=== PATIENT | male | born 1960 | race Caucasian/White ===

== ENCOUNTER 2016-06-26 08:35 | Inpatient (IN) | payer BC ==
[~2016-06-26] VITALS: Ht 177.8 cm; Wt 116.5 kg
[2016-06-27 05:50] VITALS: BP 149/97; PULSE 70; RESP 16; TEMP 98.3; O2SAT 99
[2016-06-27] MEDS ORDERED: INSULIN HUMAN REGULAR 1,000 UNITS/10 ML VIAL SQ PRN (06:30)
[2016-06-27] MEDS ORDERED: POVIDONE IODINE 7.5% SCRUB 118 ML BOTTLE TOPICAL SCH (06:30)
[2016-06-27] MEDS ORDERED: METOPROLOL TARTRATE 25 MG TAB PO PRN (06:30)
[2016-06-27] MEDS ORDERED: VANCOMYCIN 1000 MG/NS 250 ML (for <70 kg) IV SCH ×2 (06:30)
[2016-06-27] MEDS ORDERED: ceFAZolin 2 GM PREMIX 50 ML IV SCH (06:30)
[2016-06-27] MEDS ORDERED: SODIUM CHLORID 0.9% 500 ML IV PRN (06:30)
[2016-06-27] MEDS ORDERED: LACTATED RINGER'S 1000 ML IV PRN (06:30)
[2016-06-27] MEDS ORDERED: CHLORHEXIDINE GLUCONATE 2 % 1 PACK (2 CLOTHS) TOPICAL PRN (06:30)
[2016-06-27] MEDS ORDERED: DEXAMETHASONE SOD PHOS 20 MG/5 ML VIAL IV SCH (06:30)
[2016-06-27] MEDS ORDERED: POVIDONE IODINE 5% (ANTISEPSIS KIT) 4 APPLICATIONS EACH NARE PRN (06:30)
--- NOTE | 2016-06-27 07:02 | HHI.DCPOC ---
Discharge Care Plan Diagnosis: (1) Primary localized osteoarthrosis, lower leg (2) Status post total knee replacement, left Your Health Problems Are: Difficulty with ADL Goals to Promote Your Health * To prevent worsening of your condition and complications * To maintain your health at the optimal level Directions to Meet Your Goals Take your medications as prescribed Follow your dietary instruction Follow activity as directed Keep your appointments as scheduled Take your immunizations and boosters as scheduled If your symptoms worsen call your PCP, if no PCP go to Urgent Care Center or Emergency Room Smoking is Dangerous to Your Health. Avoid second hand smoke Call the 24-hour hour crisis hotline for domestic abuse at Paresh Peters June 27, 2016 07:02
--- NOTE | 2016-06-27 07:03 | HHI.FF ---
Face to Face Verification Diagnosis: (1) Status post total knee replacement, left (2) Primary localized osteoarthrosis, lower leg Physical Therapy Gait training, Transfer training, bed to chair Knee: Total knee Left LE Weight Bearing: WB as tolerated Left LE Range of Motion: Active ROM Nursing Nursing: Irvin teaching, Dressing changes Dressing Changes: Daily dressing change I have seen patient Veknat Aaron on 06/27/16. My clinical findings support the need for the requested home health care services because: Limited ability to care for self High risk of falls I certify that my clinical findings support that this patient is homebound because: Post-op weakness Unsteady gait/balance Paresh Peters June 27, 2016 07:03
[2016-06-27] MEDS ORDERED: COMMODE 3-IN-11 MIS (07:04)
[2016-06-27] MEDS ORDERED: WALKER WHEELS/F1 MIS (07:04)
[2016-06-27] MEDS ORDERED: CPMMACHINE (07:04)
[2016-06-27] MEDS ORDERED: GENTAMICIN SULFATE 80 MG/2 ML VIAL ONE (07:40)
[2016-06-27] MEDS ORDERED: ACETAMINOPHEN 1000 MG/100 ML VIAL IV ONE (08:05)
[2016-06-27] MEDS ORDERED: MIDAZOLAM HCL 2 MG/2 ML VIAL ONE (08:05)
[2016-06-27] MEDS ORDERED: fentaNYL CITRATE 250 MCG/5 ML AMP ONE ×2 (08:05→10:51)
[2016-06-27] MEDS ORDERED: ROPIVACAINE PERI-ARTICULAR INJECTION. P-ARTICULR SCH ×5 (08:30)
[2016-06-27] MEDS ORDERED: TRANEXAMIC ACID INJ 1,030 MG in SODIUM CHLORIDE 0.9% INJ 100 ML IV SCH (08:30)
[2016-06-27] MEDS ORDERED: BUPIVACAINE LIPOSOME PF 1.3% 20 ML VIAL ONE (09:05)
[2016-06-27] MEDS: SODIUM CHLOR 0.9% 1000 ML INJ 1,000 ML IV SCH (10:27)
[2016-06-27] MEDS ORDERED: NALOXONE HCL 0.4 MG/ML AMP IV PRN (10:30)
[2016-06-27] MEDS ORDERED: ACETAMINOPHEN/HYDROcodone 325 MG/5 MG TAB PO PRN (10:30)
[2016-06-27] MEDS ORDERED: ONDANSETRON HCL 4 MG/2 ML VIAL IVP PRN (10:30)
[2016-06-27] MEDS ORDERED: ZOLPIDEM TARTRATE 5 MG TAB PO PRN (10:30)
[2016-06-27] MEDS ORDERED: Post-op Orders (for Pharmacy) MISC XX ONE (10:30)
[2016-06-27] MEDS ORDERED: SODIUM CHLORIDE 0.9% FLUSH 5 ML FLUSH IVF PRN (10:30)
[2016-06-27] MEDS ORDERED: ALUMINUM/MAGNESIUM/SIMETH 30 ML CUP PO PRN (10:30)
[2016-06-27] MEDS ORDERED: MAGNESIUM HYDROXIDE SUSP 30 ML CUP PO PRN (10:30)
[2016-06-27] MEDS ORDERED: BISACODYL 10 MG SUPP RECTAL PRN (10:30)
[2016-06-27] MEDS ORDERED: diphenhydrAMINE HCL 50 MG/ML VIAL IV PRN (10:30)
[2016-06-27] MEDS ORDERED: MORPHINE SULFATE 4 MG/ML INJ IV PUSH PRN (10:30)
--- NOTE | 2016-06-27 10:33 | PD.OP ---
cc: Byron Ocampo MD Operative Report Date of Surgery: June 27, 2016 Preoperative Diagnosis: Left knee severe osteoarthritis Postoperative Diagnosis: Same Procedure: Left total knee arthroplasty Anesthesia: Adductor canal block and general Surgeon: Byron Ocampo Cremator(s): BRANNON Allred The surgical procedure was assisted by my Advanced Registered Nurse Practitioner. My MANAGER FRONT OFFICE presence was necessary throughout this case for the manipulation and positioning of the surgical extremity. My MANAGER FRONT OFFICE was assisting me throughout the duration of this procedure. The skill set of an Advance Registered Nurse Practitioner was medically necessary to complete this procedure. During the surgical case, the surgical instrument technician was working at the back table and the Advance Registered Nurse Practitioner was directly assisting me. Operation and Findings: IMPLANTS: DePuy Attune: Patella: size 38. Femur, posterior stabilized size 7. Tibia, rotating platform size 6. Tibial insert, rotating platform, posterior stabilized size 6 mm thickness. ESTIMATED BLOOD LOSS: 150 cc TOURNIQUET TIME: 63 minutes at 250 mmHg pressure. JUSTIFICATION FOR PROCEDURE: The patient has end-stage osteoarthritis to the knee. There is an attached conservative measures pathway form in the chart that describes the nonoperative measures that were undertaken prior to consideration of surgical management. The patient understood the risks and benefits of surgical management. See my office notes for further details PROCEDURE: The patient was brought back to the operative theatre. Adequate anesthesia was obtained. The patient received intravenous vancomycin and Ancef. The lower extremity was prepped and draped in the usual sterile fashion.The leg was exsanguinated, the tourniquet was raised. A standard anterior incision was performed followed by medial parapatellar arthrotomy was performed. End-stage arthritis was identified. Osteotomy of the patella was performed. We drilled holes for the patella. We trialed the patella component. We placed an intramedullary guide into the distal femur. We ultimately resected 16 mm off of the distal femur in 5 degrees of valgus. This needed to be done in stages. Initially we resected 12. However after we had fashioned the femur we went back and resected another 4 more due to imbalance in the flexion and extension gap. Essentially the extension gap continued to be tighter than the flexion gap. Therefore, we went back to resect more distal femur. The remnants of the ACL and PCL were resected. Osteotomy of the proximal tibia was performed, resecting 5 mm off of the medial side. This was done with 3 degrees of posterior slope using an extramedullary guide. The distal end of the guide was placed in the mid aspect of the ankle. The femur was sized, and four chamfer cuts were completed. 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 The rotation of the femur was spaced off of the epicondylar access. There was quite a bit of chronic scar tissue overlying the lateral femoral condyle all of which was removed to get down to good bone. Note that the posterior and chamfer cuts did not interact with the lateral femoral condyle therefore this area did need to be later buildup with cement. We then cut the central box in the distal femur to replace the PCL. We resected the remnants of the menisci and removed osteophytes off of the femur and tibia. We then trialed the knee. We punched the tibia for the keel, and then used standard technique to cement in components. Excess cement was removed. We trialed the knee again and the final polyethylene thickness was chosen to provide extension to 0 degrees, and flexion of 140 degrees to gravity. The ligaments were appropriately balanced. Lateral release was necessary to obtain excellent patellofemoral tracking. The tourniquet was released and adequate hemostasis was obtained. An intra- articular injection of a ropivacaine cocktail was injected. The posterior knee was inspected for excess cement, which was removed. The final polyethylene was put into position after thorough irrigation. We then closed deep fascia with a #2 Stratafix followed by skin with 2-0 Vicryl followed by alisha. Postop plan is to weight-bear as tolerated. DVT prophylaxis will be performed with SCDs, HALLIE carreon, early mobilization, and Lovenox followed by aspirin. Byron Ocampo MD June 27, 2016 10:33
[2016-06-27] MEDS ORDERED: NORC5TAB PO (10:35)
[2016-06-27] MEDS ORDERED: ASPI325T PO (10:35)
[2016-06-27] MEDS ORDERED: ENOX40P SQ (10:35)
[2016-06-27] MEDS ORDERED: MORPHINE SULFATE 4 MG/ML INJ ONE (10:51)
[2016-06-27] MEDS ORDERED: DO NOT ADM ANY ANTICOAGULANT DRUGS PRN (10:59)
[2016-06-27] MEDS ORDERED: *MEPERIDINE 25 MG INJ VIAL PERIprocedural Use ONLY ONE (11:10)
[2016-06-27] MEDS ORDERED: *morphine SULFATE 8 MG/ML PERIprocedure ONLY ONE (11:26)
--- NOTE | 2016-06-27 11:53 | RADRPT ---
EXAM DATE/TIME: 06/27/2016 11:14 [facility] COMPARISON: No previous studies available for comparison. INDICATIONS : Post op total knee. MEDICAL HISTORY : None. SURGICAL HISTORY : None. ENCOUNTER: Initial ACUITY: 1 day PAIN SCORE: 2/10 LOCATION: Left Knee. FINDINGS: Left total knee arthroplasty is present. Hardware is intact. Alignment is anatomic. Skin alisha are present ventrally. CONCLUSION: Satisfactory appearance post left TKA Cody Thompson MD on June 27, 2016 at 11:50 Board Certified Radiologist. This report was verified electronically.
[2016-06-27] MEDS ORDERED: TRANEXAMIC ACID IV SCH (12:00)
[2016-06-27] MEDS ORDERED: SODIUM CHLORIDE 0.9% IV SCH (12:00)
[2016-06-27] MEDS ORDERED: LACTATED RINGER'S 1000 ML INJ 1,000 ML IV ONE (12:00)
[2016-06-27] MEDS ORDERED: PROPOFOL 200 MG/20 ML AMP IV ONE (12:00)
[2016-06-27] MEDS ORDERED: ONDANSETRON HCL 4 MG/2 ML VIAL IV PUSH ONE (12:00)
[2016-06-27 12:52] VITALS: BP 121/79; PULSE 71; RESP 18; TEMP 96.3; O2SAT 97
[2016-06-27] MEDS: ACETAMINOPHEN/HYDROcodone 325 MG/5 MG TAB PO PRN ×3 (14:25→22:37)
[2016-06-27 16:00] VITALS: BP 109/69; PULSE 80; RESP 18; TEMP 95.8; O2SAT 99
[2016-06-27] MEDS: SODIUM CHLORIDE 0.9% FLUSH 5 ML FLUSH IVF SCH (19:47)
[2016-06-27 20:32] VITALS: BP 124/72; PULSE 79; RESP 19; TEMP 98.7; O2SAT 97
[2016-06-28 00:06] VITALS: BP 113/61; PULSE 72; RESP 18; TEMP 98.1; O2SAT 96
[2016-06-28] MEDS: ACETAMINOPHEN/HYDROcodone 325 MG/5 MG TAB PO PRN ×3 (02:33→16:06)
[2016-06-28 03:50] VITALS: BP 115/67; PULSE 75; RESP 18; TEMP 97.9; O2SAT 96
[2016-06-28 06:06] LABS: HEMATOCRIT 32.7 % (39.0-51.0); MEAN CELL VOLUME 83.1 FL (80.0-100.0); MEAN CORPUSCULAR HEMOGLOBIN 28.2 PG (27.0-34.0); MEAN CORPUSCULAR HGB CONC 33.9 % (32.0-36.0); PLATELET COUNT 169 TH/MM3 (150-450); RED BLOOD COUNT 3.94 MIL/MM3 (4.50-5.90); RED CELL DISTRIBUTION WIDTH 13.7 % (11.6-17.2); REVIEW FLAG FINAL; WHITE BLOOD COUNT 12.6 TH/MM3 (4.0-11.0)
[2016-06-28] MEDS: SODIUM CHLOR 0.9% 1000 ML INJ 1,000 ML IV SCH ×2 (06:27→16:27)
[2016-06-28] MEDS ORDERED: DEXAMETHASONE SOD PHOS 20 MG/5 ML VIAL IV ONE (07:45)
[2016-06-28 07:48] VITALS: BP 108/67; PULSE 63; RESP 19; TEMP 98.1; O2SAT 97
[2016-06-28] MEDS: SODIUM CHLORIDE 0.9% FLUSH 5 ML FLUSH IVF SCH (09:00)
[2016-06-28] MEDS ORDERED: ENOXAPARIN SODIUM 40 MG/0.4 ML SYRINGE SQ SCH (10:00)
[2016-06-28 11:46] VITALS: BP 118/63; PULSE 73; RESP 19; TEMP 98.2; O2SAT 98
--- NOTE | 2016-06-28 12:41 | PD.ORT.PN ---
Subjective Post Op Day #: 1 Subjective Remarks The patient is OOB in chair with little to no pain to the left knee. Patient's at bedside. Patient is requesting to go home today with home health. Objective Vitals Vital Signs Date Time Temp Pulse Resp B/P Pulse Ox O2 Delivery O2 Flow Rate FiO2 06/28/16 11:46 98.2 73 19 118/63 98 06/28/16 07:48 98.1 63 19 108/67 97 06/28/16 03:50 97.9 75 18 115/67 96 06/28/16 00:06 98.1 72 18 113/61 96 06/27/16 20:32 98.7 79 19 124/72 97 06/27/16 16:00 95.8 80 18 109/69 99 06/27/16 12:52 96.3 71 18 121/79 97 I/O 06/27/16 06/27/16 06/27/16 06/28/16 06/28/16 06/28/16 07:00 15:00 23:00 07:00 15:00 23:00 Intake Total 1550 ml 720 ml 360 ml Output Total 600 ml 700 ml 475 ml Balance 950 ml 20 ml -115 ml Intake Oral 720 ml 360 ml IV Total 150 ml Other 1400 ml Output Urine Total 450 ml 700 ml 475 ml Estimated Blood Loss 150 ml # Bowel Movements 0 0 Result Diagram: 06/28/16 0541 Procedures Left TKA Objective Remarks The patient's dressing was changed today with scant serosanguineous drainage. Incision is well approximated with surgical clips intact. No redness or s/s of infection. EHL/TA/G intact. 2+ pedal pulse. Mild to moderate swelling. Calf is soft and nontender. + SILT. Assessment & Plan Ortho Post Op Day #: 1 Problem List: Assessment and Plan POD #1: Left TKA 1. WBAT LLE 2. Lovenox for DVT prophylaxis 3. Ice to the left knee PRN 4. Stable for discharge home with home health today. Paresh Peters June 28, 2016 12:41
[2016-06-28] MEDS ORDERED: DOCUSATE SODIUM 100 MG CAP PO SCH (21:00)
[2016-06-28] MEDS ORDERED: MULTIVITAMINS/MINERALS THERAPEUTIC TAB PO SCH (21:00)
--- NOTE | 2016-07-01 16:45 | HHI.DS ---
Discharge Summary Admission Date June 27, 2016 at 05:38 Discharge Date: June 28, 2016 Admitting Diagnosis Primary localized OA, lower leg Status post total knee replacement, Left Diagnosis: (1) Primary localized osteoarthrosis, lower leg Diagnosis: Principal (2) Status post total knee replacement, left Diagnosis: Principal Procedures Left TKA Brief History This is a 55 year old male patient with severe OA of the left knee CBC/BMP: 06/28/16 0541 PE at Discharge The patient's dressing was changed today with scant serosanguineous drainage. Incision is well approximated with surgical clips intact. No redness or s/s of infection. EHL/TA/G intact. 2+ pedal pulse. Mild to moderate swelling. Calf is soft and nontender. + SILT. Hospital Course The patient was admitted to the hospital for severe OA of the left knee to have a left TKA. The patient's surgery went well with no complications. The patient is WBAT on the RLE. The patient is on a regular diet post op. The patient was placed on Lovenox followed by ASA for DVT prophylaxis. The patient was discharged home with home health and will f/u in the office with Dr. Ocampo in 1-2 weeks. Pt Condition on Discharge: Stable Discharge Disposition: Disch w/ Home Health Serv Discharge Instructions Diet Instructions: As Tolerated, No Restrictions Activities You Can Perform: Weight Bearing as Francisca Activities to Avoid: Strenuous Activity Follow up Referrals: Orthopedics with Byron Ocampo MD SNF[facility]OD[facility] [phone] New Medications: Aspirin (Aspirin) 325 Mg Tab 325 MG PO DAILY Start Aspirin after Lovenox is completed. Prevent Blood Clot # 30 Ref 0 TAB Enoxaparin Inj (Lovenox Inj) 40 Mg/0.4 Ml Syr 40 MG SQ DAILY Start Aspirin after Lovenox is completed. Blood Clot Prevention # 20 Ref 0 SYR[place] Hydrocodone-Acetaminophen ([place]) 5-325 mg Tab 1-2 TAB PO Q4H PRN PAIN #60 Ref 0 TAB Paresh Peters July 01, 2016 16:45
== END 2016-06-28 17:44 | disposition home health service (06) | DRG 470 ==
LOC: HSDI 06-27 05:38 → N06B 06-27 12:44
PROVIDERS: ADMIT Orthopaedic Surgery; ATTEND Orthopaedic Surgery
PROC: 0SRD0J9 Replacement of Left Knee Joint with Synthetic Substitute, Cemented, Open Approach (ICD-10-PCS; principal; 2016-06-27 08:07)
DX: M17.9 Osteoarthritis of knee, unspecified (principal); I10 Essential (primary) hypertension; Z87.891 Personal history of nicotine dependence; Z86.718 Personal history of other venous thrombosis and embolism
CPT/HCPCS: 73560; 85027; 86850; 86900; 86901; 94150; C1776; C9290; J0131; J0171; J0690; J0735; J1100; J1580; J1650; J1885; J2175; J2250; J2270; J2405; J2795; J3010; J3370; J7030; J7050; J7120; L1830

== ENCOUNTER 2016-06-30 18:47 | Emergency (ER) | payer BC ==
[~2016-06-30] VITALS: Ht 180.3 cm; Wt 102.0 kg
[~2016-06-30 18:47] MED LIST: ASPI325T PO; COMMODE 3-IN-11 MIS; CPMMACHINE; ENOX40P SQ; NORC5TAB PO; WALKER WHEELS/F1 MIS
[2016-06-30 18:49] VITALS: BP 151/92; PULSE 100; RESP 20; TEMP 97; O2SAT 98
--- NOTE | 2016-06-30 19:29 | PD ---
HPI Chief Complaint: Wound/Suture/Staple Re-Check Time Seen by Provider: 19:10 Travel History International Travel<30 days: No Contact w/Intl Traveler<30days: No Traveled to known affect area: No History of Present Illness HPI This is a 55-year-old male who has a history of DVT in the past who presents to the emergency department with swelling in his left lower extremity around his knee. The patient had a knee replacement by Dr. Ocampo 4 days ago. Uses been doing really well and then yesterday he started to have increasing swelling, redness and warmth of the knee and his range of motion became more limited. He says than having fevers up to 100.5. He denies any dysuria, shortness of breath , productive cough or other flulike symptoms. PFSH Past Medical History Hx Anticoagulant Therapy: Yes (LOVENOX) Cancer: No Cardiovascular Problems: Yes (DVT) Diabetes: No Endocrine: No Genitourinary: No Hepatitis: No Hiatal Hernia: No Immune Disorder: No Musculoskeletal: Yes (OA) Neurologic: No Psychiatric: No Reproductive: No Respiratory: No Thyroid Disease: No Past Surgical History Abdominal Surgery: Yes (INGUINAL HERNIA REPAIR) AICD: No Arteriovenous Shunt: No Body Medical Devices: PLATE RIGHT FOOT Cardiac Surgery: No Ear Surgery: Yes Eye Surgery: Yes (lasik ) Genitourinary Surgery: No Insulin Pump: No Joint Replacement: No Oral Surgery: No Pacemaker: No Thoracic Surgery: No Social History Tobacco Use: No Substance Use: No Allergies-Medications (Allergen,Severity, Reaction): Coded Allergies: No Known Allergies (Unverified , 06/30/16) Reported Meds & Prescriptions Reported Meds & Active Scripts Active Aspirin 325 Mg Tab 325 Mg PO DAILY Start Aspirin after Lovenox is completed. Lovenox Inj (Enoxaparin Sodium) 40 Mg/0.4 Ml Syr 40 Mg SQ DAILY Start Aspirin after Lovenox is completed. [place] (Hydrocodone-Acetaminophen) 5-325 mg Tab 1-2 Tab PO Q4H PRN Review of Systems Except as stated in HPI: all other systems reviewed are Neg Physical Exam Narrative GENERAL:Well appearing, no acute distress SKIN: Vertical incision of the left knee as well appearing, clean dry and intact with no surrounding erythema or induration HEAD: Atraumatic. Normocephalic. EYES: Pupils equal and round. No injection or drainage. ENT: Moist mucous membranes NECK: Trachea midline. CARDIOVASCULAR: Regular rate and rhythm. No murmur appreciated. RESPIRATORY: Clear to auscultation. Breath sounds equal bilaterally. GASTROINTESTINAL: Abdomen soft, non-tender, nondistended. MUSCULOSKELETAL: Warmth and swelling of the left knee NEUROLOGICAL: Awake and alert. No obvious cranial nerve deficits. Moving all extremities. PSYCHIATRIC: Appropriate mood and affect; insight and judgment normal. Data Data Last Documented VS Vital Signs Date Time Temp Pulse Resp B/P Pulse Ox O2 Delivery O2 Flow Rate FiO2 06/30/16 21:49 16 06/30/16 21:12 99.6 68 134/79 98 06/30/16 18:49 Room Air Orders Complete Blood Count With Diff (06/30/16 19:20) Comprehensive Metabolic Panel (06/30/16 19:20) W[place]gren Sedimentation Rate (06/30/16 19:20) C-Reactive Protein (Crp) (06/30/16 19:20) Us Leg Venous Doppler (06/30/16 ) Prothrombin Time / Inr (Pt) (06/30/16 19:20) Act Partial Throm Time (Ptt) (06/30/16 19:20) ^ Insert Iv (06/30/16 19:20) Urinalysis - C+S If Indicated (06/30/16 19:20) Sodium Chlor 0.9% 1000 Ml Inj (Ns 1000 M (06/30/16 19:30) Acetamin-Hydrocod 325-5 Mg ([place] 5-325 (06/30/16 21:15) Labs Laboratory Tests Test 06/30/16 06/30/16 19:35 20:15 White Blood Count 7.4 TH/MM3 Red Blood Count 4.13 MIL/MM3 Hemoglobin 11.7 GM/DL Hematocrit 33.9 % Mean Corpuscular Volume 82.0 FL Mean Corpuscular Hemoglobin 28.3 PG Mean Corpuscular Hemoglobin 34.6 % Concent Red Cell Distribution Width 13.8 % Platelet Count 171 TH/MM3 Mean Platelet Volume 9.5 FL Neutrophils (%) (Auto) 61.0 % Lymphocytes (%) (Auto) 26.8 % Monocytes (%) (Auto) 8.9 % Eosinophils (%) (Auto) 2.5 % Basophils (%) (Auto) 0.8 % Neutrophils # (Auto) 4.5 TH/MM3 Lymphocytes # (Auto) 2.0 TH/MM3 Monocytes # (Auto) 0.7 TH/MM3 Eosinophils # (Auto) 0.2 TH/MM3 Basophils # (Auto) 0.1 TH/MM3 CBC Comment DIFF FINAL Differential Comment Erythrocyte Sedimentation Rate 40 mm/hr Prothrombin Time 10.0 SEC Prothromb Time International 0.9 RATIO Ratio Activated Partial 25.3 SEC Thromboplast Time Sodium Level 136 MEQ/L Potassium Level 4.0 MEQ/L Chloride Level 98 MEQ/L Carbon Dioxide Level 29.7 MEQ/L Anion Gap 8 MEQ/L Blood Urea Nitrogen 15 MG/DL Creatinine 1.13 MG/DL Estimat Glomerular Filtration 68 ML/MIN Rate Random Glucose 96 MG/DL Calcium Level 8.7 MG/DL Total Bilirubin 0.4 MG/DL Aspartate Amino Transf 16 U/L (AST/SGOT) Alanine Aminotransferase 17 U/L (ALT/SGPT) Alkaline Phosphatase 65 U/L C-Reactive Protein 3.70 MG/DL Total Protein 6.9 GM/DL Albumin 3.3 GM/DL Urine Color YELLOW Urine Turbidity CLEAR Urine pH 6.5 Urine Specific [place] 1.013 Urine Protein NEG mg/dL Urine Glucose (UA) NEG mg/dL Urine Ketones NEG mg/dL Urine Occult Blood NEG Urine Nitrite NEG Urine Bilirubin NEG Urine Urobilinogen LESS THAN 2.0 MG/DL Urine Leukocyte Esterase NEG Urine RBC 2 /hpf Urine WBC 1 /hpf Microscopic Urinalysis Comment CULT NOT INDICATED MDM Medical Decision Making Medical Screen Exam Complete: Yes Emergency Medical Condition: Yes Interpretation(s) Afebrile, tachycardic, mild hypertension No leukocytosis Sedimentation rate is 40 CRP is 2.7 Urinalysis: No infection Last 24 hours Impressions Lower Extremity Ultrasound 06/30/16 0000 Signed Impressions: Service Date/Time: Thursday, June 30, 2016 20:36 - CONCLUSION: Normal examination. Maxime Humphrey MD Differential Diagnosis DVT, urinary tract infection, septic arthritis, wound infection Narrative Course This is a 55-year-old male who had a total knee replacement [address] Ocampo with increasing swelling and pain of the left knee. His incision looks clean with no evidence of infection. He has normal-appearing postoperative swelling and warmth. Ultrasound was performed which was negative for DVT. Labs demonstrate some mild elevation in inflammatory markers but a normal white blood cell count. I spoke to the physician virtual assistant for advertisers on-call for Dr. Ocampo's team who agrees the patient's low-grade fevers are likely a normal SIRS response to his recent procedure. Patient will be discharged home to follow-up with Dr. Lyons in clinic. Diagnosis Primary Impression: Postoperative pain Patient Instructions: General Instructions Additional Instructions: If you develop any redness, warmth or drainage from your incision return to the emergency department. Follow-up with Dr. Lyons in one week. Med/Other Pt SpecificInfo: No Change to Meds Disposition: 01 DISCHARGE HOME Condition: Stable Brittney Mccracken MD June 30, 2016 19:29
[2016-06-30] MEDS ORDERED: SODIUM CHLOR 0.9% 1000 ML INJ 1,000 ML IV ONE (19:30)
[2016-06-30 20:19] LABS: AUTOMATED NEUTROPHIL # 4.5 TH/MM3 (1.8-7.7); BASOPHIL # 0.1 TH/MM3 (0-0.2); BASOPHIL % 0.8 % (0.0-2.0); EOSINOPHIL # 0.2 TH/MM3 (0-0.4); EOSINOPHIL % 2.5 % (0.0-4.0); HEMATOCRIT 33.9 % (39.0-51.0); HEMO FLAGS DIFF FINAL; LYMPH % 26.8 % (9.0-44.0); MEAN CORPUSCULAR HEMOGLOBIN 28.3 PG (27.0-34.0); MEAN CORPUSCULAR HGB CONC 34.6 % (32.0-36.0); MONO % 8.9 % (0.0-8.0); PLATELET COUNT 171 TH/MM3 (150-450); RED BLOOD COUNT 4.13 MIL/MM3 (4.50-5.90); RED CELL DISTRIBUTION WIDTH 13.8 % (11.6-17.2); WHITE BLOOD COUNT 7.4 TH/MM3 (4.0-11.0)
[2016-06-30 20:25] LABS: APTT (PATIENT) 25.3 SEC (24.3-30.1); INTERNATIONAL NORMALIZED RATIO 0.9 RATIO
[2016-06-30 20:27] LABS: ANION GAP 8 MEQ/L (5-15); AST (GOT) 16 U/L (15-37); BICARBONATE 29.7 MEQ/L (21.0-32.0); BLOOD UREA NITROGEN 15 MG/DL (7-18); CHLORIDE 98 MEQ/L (98-107); GLOMERULAR FILTRATION RATE 68 ML/MIN (>89); SODIUM (NA) 136 MEQ/L (136-145)
[2016-06-30 20:32] LABS: ALKALINE PHOSPHATASE 65 U/L (45-117); ALT (GPT) 17 U/L (12-78); TOTAL BILIRUBIN ADULT 0.4 MG/DL (0.2-1.0)
[2016-06-30 20:44] LABS: BLOOD, URINE NEG (NEG); GLUCOSE,URINE NEG (NEG); KETONE, URINE NEG (NEG); NITRITE,URINE NEG (NEG); PH, URINE 6.5 (5.0-8.5); URINE COLOR YELLOW (YELLW/STRAW)
[2016-06-30 21:01] LABS: COMMENT (UR) CULT NOT INDICATED; CULTURE IF INDICATED CULT NOT INDICATED
[2016-06-30 21:12] VITALS: BP 134/79; PULSE 68; RESP 16; TEMP 99.6; O2SAT 98
[2016-06-30] MEDS ORDERED: ACETAMINOPHEN/HYDROcodone 325 MG/5 MG TAB PO ONE (21:15)
--- NOTE | 2016-06-30 21:38 | RADRPT ---
EXAM DATE/TIME: 06/30/2016 20:36 [facility] COMPARISON: No previous studies available for comparison. INDICATIONS : Left leg pain and swelling s/p left knee replacement 5 days ago. MEDICAL HISTORY : Gastroesophageal reflux disease. Hypertension. Deep venous thrombosis. Anticoagulant therapy, Love nox. Osteoarthritis. SURGICAL HISTORY : Inguinal hernia repair. Total knee replacement, left. Lasik. Left knee arthroscopy. Right foot repa ir. ENCOUNTER: Initial ACUITY: 1 day PAIN SCORE: 6/10 LOCATION: Left leg. TECHNIQUE: Venous ultrasound of the leg was performed from the inguinal ligament to the proximal calf. Real-ayan e, color Doppler and spectral tracing, compression and augmentation techniques were used. FINDINGS: There is normal compressibility of the deep venous system from the inguinal region to the proximal ca lf. No echogenic clot is seen in the lumen of the common femoral, femoral, popliteal, and posterior tibial veins. There is a normal response of the venous system to proximal and distal augmentation an d respiration. CONCLUSION: Normal examination. Maxime Humphrey MD on June 30, 2016 at 21:35 Board Certified Radiologist. This report was verified electronically.
[2016-06-30 21:49] VITALS: RESP 16
[2016-06-30 22:30] VITALS: BP 135/76
== END 2016-06-30 22:32 | disposition home or self-care (01) ==
LOC: NEPE 18:47
DX: G89.18 Other acute postprocedural pain (principal); R50.9 Fever, unspecified; Z79.01 Long term (current) use of anticoagulants; Z86.718 Personal history of other venous thrombosis and embolism
CPT/HCPCS: 80053; 81001; 85025; 85610; 85652; 85730; 86140; 93971; 99284; J7030